=== PATIENT | male | born 1985 | race Caucasian/White ===

== ENCOUNTER 2018-06-15 14:45 | Emergency (ER) | payer MEDICAID ==
[~2018-06-15] VITALS: Ht 175.3 cm; Wt 72.6 kg
--- NOTE | 2018-06-15 14:50 | NUR ---
PT JOANNA FROM THE STREETS C/O SUDDEN ONSET RLE PAIN THAT STARTED AT 1000 TODAY. DENIES ANY RECENT TRAUMA. GOWNED AND PLACED ON MONITOR. AWAITING MD GIRON.
--- NOTE | 2018-06-15 15:09 | NUR ---
DR VIERA AT BEDSIDE FOR EVAL.
[2018-06-15] MEDS ORDERED: TRAMADOL HCL 50 MG TABLET ONE (15:15)
[2018-06-15 15:21] LABS: BASOPHILS % (AUTO) 0.2 % (0.0-2.0); EOSINOPHILS % (AUTO) 0.5 % (0.0-6.0); HEMATOCRIT 34 % (39-51); LYMPHOCYTES # (AUTO) 1.1 /CMM (0.8-4.8); MEAN CORPUSCULAR HGB CONC 33 g/dl (31.0-36.0); MEAN CORPUSCULAR VOLUME 82 fL (80-96); MONOCYTES # (AUTO) 0.4 /CMM (0.1-1.30); MONOCYTES % (AUTO) 6.3 % (2.0-12.0); NEUTROPHILS # (AUTO) 5.6 /CMM (1.8-8.9); PLATELET COUNT (AUTO) 324 /CMM (150-450); RDW COEFFICIENT OF VARIATION 15.4 (11.5-15.0); RED BLOOD CELL COUNT(AUTO) 4.09 MIL/uL (4.5-6.0); WHITE BLOOD COUNT (AUTO) 7.1 K/uL (4.3-11.0)
--- NOTE | 2018-06-15 15:28 | NUR ---
U/S [facility] FOR RLE DUPLEX ULTRASOUND.
[2018-06-15] MEDS ORDERED: TRAMADOL HCL 50 MG TABLET PO ONE (15:30)
[2018-06-15 15:31] LABS: CREATININE 0.8 mg/dL (0.6-1.3); POTASSIUM 3.4 mmol/L (3.5-5.1)
[2018-06-15] MEDS ORDERED: POTASSIUM CHLORIDE 20 MEQ TAB.PRT.SR PO ONE ×2 (16:28→16:30)
--- NOTE | 2018-06-15 16:30 | NUR ---
Patient discharged to home in stable condition. Written and verbal after care instructions given. Patient verbalizes understanding of instruction.
[2018-06-15 16:32] VITALS: BP 111/87
== END 2018-06-15 16:33 | disposition home or self-care (01) ==
LOC: ER 14:51
DX: G89.29 Other chronic pain (principal); M79.604 Pain in right leg; D64.9 Anemia, unspecified; E87.6 Hypokalemia; I82.401 Acute embolism and thrombosis of unspecified deep veins of right lower extremity
CPT/HCPCS: 36415; 73560; 80048; 85025; 93971; 99285; A4606; Z7610

== ENCOUNTER 2018-06-16 23:58 | Emergency (ER) | payer MEDICAID ==
[~2018-06-16] VITALS: Ht 175.3 cm; Wt 72.6 kg
[2018-06-17 00:53] VITALS: BP 117/71
[2018-06-17] MEDS ORDERED: HYDROCODONE/APAP 10/325MG 1 EA TABLET ONE (01:21)
[2018-06-17] MEDS ORDERED: HYDROCODONE/APAP 10/325MG 1 EA TABLET PO ONE (01:30)
== END 2018-06-17 02:56 | disposition home or self-care (01) ==
LOC: ER 06-17
DX: G89.29 Other chronic pain (principal); M79.661 Pain in right lower leg; F17.200 Nicotine dependence, unspecified, uncomplicated; Z85.830 Personal history of malignant neoplasm of bone; Z98.890 Other specified postprocedural states
CPT/HCPCS: 73560; 99284; 99406; A4606; Z7610